=== PATIENT | female | born 1975 | race Caucasian/White ===

== ENCOUNTER 2019-08-02 16:23 | Emergency (ER) | payer MEDICAID, OTHER ==
[~2019-08-02] VITALS: Ht 160 cm; Wt 78.0 kg
[2019-08-02] MEDS ORDERED: ketorolac trometh. 30mg/ml inj. IM ONE (17:00)
[2019-08-02 17:03] LABS: BASOPHILS % (AUTO) 0.4 % (0-1); EOSINOPHILS # (AUTO) 0.1 X10'3 (0-0.9); EOSINOPHILS % (AUTO) 2.7 % (0-6); HEMATOCRIT 41.8 % (35.0-45.0); HEMOGLOBIN 13.9 g/dl (12.0-16.0); LYMPHOCYTES # (AUTO) 1.4 X10'3 (1.1-4.8); LYMPHOCYTES % (AUTO) 24.6 % (21-51); MEAN CORPUSCULAR HEMOGLOBIN 30.5 PG (27.0-31.0); MEAN CORPUSCULAR HGB CONC 33.3 g/dL (33.0-36.5); MEAN CORPUSCULAR VOLUME 91.6 FL (78-98); MEAN PLATELET VOLUME 7.9 FL (7.4-10.4); MONOCYTES # (AUTO) 0.5 X10'3 (0-0.9); MONOCYTES % (AUTO) 8.2 % (2-12); NEUTROPHILS # (AUTO) 3.5 X10'3 (1.8-7.7); NEUTROPHILS % (AUTO) 64.1 % (42-75); PLATELET COUNT 289 X10'3 (140-440); RED BLOOD COUNT 4.56 X10'6 (4.20-5.60); RED CELL DISTRIBUTION WIDTH 12.8 % (11.5-14.5); WHITE BLOOD COUNT 5.5 X10'3 (4.5-11.0)
[2019-08-02 17:18] LABS: ALANINE AMINOTRANSFERASE 29 U/L (12-78); ALBUMIN/GLOBULIN RATIO 1.1 (1.1-1.5); ALKALINE PHOSPHATASE 79 IU/L (46-116); ANION GAP 7 (8-16); ASPARTATE AMINO TRANSFERASE 26 U/L (10-37); BILIRUBIN,TOTAL 0.3 MG/DL (0.1-1.0); BLOOD UREA NITROGEN 19 MG/DL (7-18); BUN/CREATININE RATIO 28.8 (6.6-38.0); CHLORIDE 107 MMOL/L (99-107); CREATININE 0.66 MG/DL (0.40-0.90); GLUCOSE 85 MG/DL (70-104); SODIUM 142 MMOL/L (135-145); TOTAL CARBON DIOXIDE 27.8 MMOL/L (24-32); TOTAL PROTEIN 7.8 G/DL (6.4-8.2); eGFR > 90 ML/MIN
[2019-08-02 17:25] LABS: MAGNESIUM 2.1 MG/DL (1.5-2.4)
[2019-08-02] MEDS ORDERED: TRAM50TA2 PO (17:55)
[2019-08-02 18:37] VITALS: BP 117/95
== END 2019-08-02 18:40 | disposition home or self-care (01) ==
LOC: ER 16:23
DX: R07.89 Other chest pain (principal)
CPT/HCPCS: 36415; 71045; 80053; 83735; 83880; 84484; 85025; 85610; 93005; 96372; 99285; J1885